=== PATIENT | female | born 1985 | race Caucasian/White ===

== ENCOUNTER 2021-07-24 14:53 | Outpatient (REF) | payer OTHER, SELFPAY ==
[2021-07-24 17:04] LABS: Abs Immature Grans 0.01 10^3/uL (0.0-0.06); Absolute Basophil Count 0.02 10^3/uL (0.0-0.2); Absolute Eosinophil Count 0.07 10^3/uL (0.0-0.7); Absolute Lymphocyte Count 1.62 10^3/uL (1.2-3.4); Absolute Monocyte Count 0.66 10^3/uL (0.1-0.8); Absolute Neutrophil Count 4.18 10^3/uL (1.2-6.7); Basophils % 0.3; Eosinophils % 1.1; HCT 42.6 % (36.0-46.0); HGB 14.5 g/dL (11.2-15.7); Immature Grans % 0.2; Lymphocytes % 24.7; MCH 31.2 pg (27.0-33.0); MCV 91.6 fL (80-95); MPV 9.3 fL (8.0-11.0); Monocytes % 10.1; Neutrophils % 63.6; Nucleated RBC 0 %; Platelet Count 225 10^3/uL (130-400); RBC 4.65 10^6/uL (3.93-5.22); RDW 12.5 % (11.7-14.6); RDW-SD 41.6 fL; WBC 6.56 10^3/uL (4.4-10.8)
[2021-07-24 17:19] LABS: ALT 663 U/L (14-59); AST 213 U/L (15-37); Alkaline Phosphatase 227 U/L (46-116); Anion Gap 9.7 mmol/L (3-11); BUN 10 mg/dL (7-18); Bilirubin, Total 2.3 mg/dL (0.2-1.0); CO2 26.3 mmol/L (21.0-32.0); CREATININE 0.7 mg/dL (0.55-1.02); Calcium 9.2 mg/dL (8.5-10.1); Chloride 106 mmol/L (98-107); Glucose 95 mg/dL (74-106); Potassium 4.3 mmol/L (3.5-5.1); Sodium 142 mmol/L (136-145); Total Protein 6.8 g/dL (6.4-8.2)
[2021-07-24 17:31] LABS: Lipase 9419 U/L (73-393)
== END 2021-07-24 14:54 | disposition home or self-care (01) ==
LOC: LBN 14:53
PROVIDERS: PCP Internal Medicine; Referring Provider Physician Assistant Medical; Visit Provider Physician Assistant Medical
DX: R10.9 Unspecified abdominal pain (principal)
CPT/HCPCS: 80053; 83690; 85025

== ENCOUNTER 2024-03-03 09:41 | Outpatient (CLI) | payer SELFPAY ==
[2024-03-03 08:32] LABS: Abs Immature Grans 0.01 10^3/uL (0.0-0.06); Absolute Basophil Count 0.01 10^3/uL (0.0-0.2); Absolute Eosinophil Count 0.06 10^3/uL (0.0-0.7); Absolute Lymphocyte Count 1.69 10^3/uL (1.2-3.4); Absolute Monocyte Count 0.28 10^3/uL (0.1-0.8); Absolute Neutrophil Count 3.02 10^3/uL (1.2-6.7); Basophils % 0.2; Eosinophils % 1.2; HCT 42.4 % (36.0-46.0); Immature Grans % 0.2; Lymphocytes % 33.3; MCH 32.6 pg (27.0-33.0); MCHC 35.4 % (32.0-36.0); MCV 92 fL (80-95); MPV 8.2 fL (8.0-11.0); Monocytes % 5.5; Neutrophils % 59.6; Platelet Count 273 10^3/uL (130-400); RDW 11.7 % (11.7-14.6); RDW-SD 39.8 fL; WBC 5.07 10^3/uL (4.4-10.8)
[2024-03-03 09:00] LABS: ALT 25 U/L (14-59); AST 16 U/L (15-37); Alkaline Phosphatase 49 U/L (46-116); BUN 13 mg/dL (7-18); Bilirubin, Total 0.8 mg/dL (0.2-1.0); CREATININE 0.9 mg/dL (0.55-1.02); Calculated LDL 72 mg/dL (<100); Chloride 104 mmol/L (98-107); Cholesterol 174 mg/dL (<200); Glucose 96 mg/dL (74-106); HDL Cholesterol 97 mg/dL (40-60); Potassium 3.8 mmol/L (3.5-5.1); Sodium 142 mmol/L (136-145); TSH (W/Ref FT4) 1.14 uIU/mL (0.36-3.74); Total Protein 7.2 g/dL (6.4-8.2); Triglyceride 29 mg/dL (<150)
== END 2024-03-03 09:42 | disposition home or self-care (01) ==
LOC: LBO 09:41
PROVIDERS: PCP Nurse Practitioner; Visit Provider Nurse Practitioner
DX: Z13.220 Encounter for screening for lipoid disorders (principal); F41.9 Anxiety disorder, unspecified
CPT/HCPCS: 36415; 80053; 80061; 84443; 85025

== ENCOUNTER 2024-10-20 15:30 | Outpatient (REF) | payer OTHER, SELFPAY ==
--- NOTE | 2024-10-20 15:20 | PAPFT_PTH ---
PATIENT: Codi Diaz LOC: [facility] U#:[id number] AGE/SX: 39/F ROOM: RE10/20/[address]: Jocelyne Beavers DO : 1985 BED: DIS: 10/20/2024 SPEC #: [id number] RECD: 10/20/24 17:14 STATUS: ABIODUN REQ #: [id number] MARIBEL: 10/20/24 15:[address]: Jocelyne Beavers DEPT: [facility] Cytology RECD BY: Krystal Gilbert ENTERED: 10/20/24 17:14 SP TYPE: PAPFT ARIEL DR: Valerie Palomino APRN Tissues: 1 - CX/ENDOCX FOR PAP SMEARS Procedures: PAP THIN PREP/[facility] Screening HPV DNA PROBE Comments: [id number] (HPV 16 & 18/45)
== END 2024-10-20 15:31 | disposition home or self-care (01) ==
LOC: LBN 15:30
PROVIDERS: PCP Nurse Practitioner; Visit Provider Obstetrics & Gynecology
DX: Z12.39 Encounter for other screening for malignant neoplasm of breast (principal); Z01.419 Encounter for gynecological examination (general) (routine) without abnormal findings; Z30.431 Encounter for routine checking of intrauterine contraceptive device
CPT/HCPCS: 88142; 87624

== ENCOUNTER 2024-11-04 00:14 | Outpatient (CLI) | payer OTHER, SELFPAY ==
--- NOTE | 2024-11-04 07:30 | DI.MAMMO_ITS ---
Exam(s) MAMMO SCREENING EXAM: MAMMO SCREENING CLINICAL HISTORY: screening TECHNIQUE: Bilateral full field digital CC and MLO mammographic images were obtained with 3D tomosyn thesis and utilizing computer aided detection (CAD). COMPARISON: This is a baseline examination. FINDINGS: Masses/Architectural Distortion: There appears to be a ovoid nodular density in the outer right breas t on the CC view. It appears to lie in upper half of the right breast on the MLO view. There are no areas of architectural distortion. Microcalcifications: No suspicious pleomorphic-type are seen. Skin Thickening/Nipple Retraction: None. IMPRESSION: 1. Ovoid nodule in the upper outer quadrant of the right breast. 2. A spot compression views requested for further evaluation. Targeted right breast ultrasound may b e indicated at that time. BI-RADS Category 0 - Incomplete: Need additional imaging evaluation Breast Density - Category C - Heterogeneously dense Breast density category C or D implies that the patient has dense breast tissue. Dense breast tissue is very common and is not abnormal but dense breast tissue can make it harder to find cancer on a ma mmogram. Also, dense breast tissue may increase their breast cancer risk. This information about the result of the mammogram report was provided to the patient to raise their awareness. Use this report when you speak with the patient about their risks for breast cancer, which includes their family hist ory. At that time, you may recommend for more screening tests (Ultrasound or MRI) as they might be us eful based on their risk. A negative radiographic report should not delay biopsy if a dominant or clinically suspicious mass is present. Up to ten percent of cancers are not identified on mammography. A negative report may reinforce clinical impression. Adenosis and dense breasts may obscure an underlying neoplasm. False positive reports average 6 to 10%. Patient will receive a letter notifying them of these results.
== END 2024-11-04 00:34 ==
PROVIDERS: PCP Nurse Practitioner; Visit Provider Obstetrics & Gynecology
DX: Z12.31 Encounter for screening mammogram for malignant neoplasm of breast (principal); R92.333 Mammographic heterogeneous density, bilateral breasts
CPT/HCPCS: 77063; 77067

== ENCOUNTER 2024-11-11 00:36 | Outpatient (CLI) | payer SELFPAY ==
--- NOTE | 2024-11-11 | DI.US_ITS ---
Exam(s) MG MAMMO SCREEN CALL BACK UNI US BREAST RT LIMITED EXAM: MG MAMMO SCREEN CALL BACK UNI CLINICAL HISTORY: F/U ABNL MAMMO, OVOID NODULE UOQ RT BREAST. TECHNIQUE: Craniocaudal and mediolateral oblique spot compression digital Mammography views of the r ightbreast with Tomosynthesis and right breast ultrasound. COMPARISON: MG MG MAMMO SCREENING from 11/04/2024 US US BREAST RT LIMITED from 11/11/2024 FINDINGS: Mammography/Tomosynthesis: Masses: No suspicious mass. The questioned area of nodularity in the upper outer quadrant adjacent t o the pectoral muscle, has the appearance of a lymph node. Architectural Distortion: None seen. Microcalcifictions: No suspicious pleomorphic-type are seen. Skin Thickening/Nipple Retraction: None. Right breast US: Echotexture: Normal appearance of the glandular tissue. Shadowing: No suspicious foci. Cyst: 5 x 3 millimeter cyst in the retroareolar region. Solid lesions: No suspicious masses seen. Ductal dilation: None. IMPRESSION: 1. No evidence of malignancy is noted. 2. Six-month follow-up right mammogram recommended. 3. The findings were discussed with the patient on the date of the examination. BI-RADS Category 3 - 6 month - Probably Benign Finding: Recommend follow-up mammography in 6 months Breast Density - Category C - Heterogeneously dense A mammogram that demonstrates density of C or D indicates the patient's breast tissue is dense. Dense breast tissue is very common and is not abnormal, but dense breast tissue can make it harder to find cancer on a mammogram. Also, dense breast tissue may increase their breast cancer risk. This informa tion about the result of the mammogram report was provided to the patient to raise their awareness. U se this report when you speak with the patient about their risks for breast cancer, which includes th eir family history. At that time, you may recommend for more screening tests (Ultrasound or MRI) as t hey might be useful based on their risk. A negative radiographic report should not delay biopsy if a dominant or clinically suspicious mass is present. Up to ten percent of cancers are not identified on mammography. A negative report may reinforce clinical impression. Adenosis and dense breasts may obscure an underlying neoplasm. False positive reports average 6 to 10%. Patient will receive a letter notifying them of these results.
== END 2024-11-11 00:56 ==
PROVIDERS: PCP Nurse Practitioner; Visit Provider Obstetrics & Gynecology
DX: Z12.31 Encounter for screening mammogram for malignant neoplasm of breast (principal); R92.333 Mammographic heterogeneous density, bilateral breasts; D24.1 Benign neoplasm of right breast
CPT/HCPCS: 76642; 77063; 77067

== ENCOUNTER 2025-05-05 00:19 | Outpatient (CLI) | payer BC, SELFPAY ==
--- NOTE | 2025-05-05 07:30 | DI.MAMMO_ITS ---
Exam(s) MG MAMMO DIAGNOSTIC UNI EXAM: MG MAMMO DIAGNOSTIC UNI CLINICAL HISTORY: 6-month f/u,abnl mammo rt breast,r92.8,lymph node and cyst, rt TECHNIQUE: Cc and MLO mammogram images were performed according to the usual protocol including computer analysis with CAD system, tomosynthesis and C- view imaging. COMPARISON: MG MG MAMMO SCREENING from 11/04/2024 US US BREAST RT LIMITED from 11/11/2024 MG MG MAMMO SCREEN CALL BACK UNI from 11/11/2024 FINDINGS: The breast is composed of scattered fibroglandular densities, Breast Density category B. No suspicious masses or suspicious microcalcifications are seen. No skin thickening or abnormal axillary lymph nodes are seen. Arm the previously noted lymph node adjacent to the pectoral muscle appears unchanged. IMPRESSION: BI-RADS Category 3 - Annual - Resume Annual Screening Breast Density - Category C - The breast are heterogeneously dense, which may obscure small masses. Breast density Category C or D implies that the patient has dense breast tissue. Dense breast tissue can make it harder to find cancer on a mammogram. Dense breast tissue is also associated with an increased risk of breast cancer. This information about the result of the mammogram report was provided to the patient to raise their awareness. Use this report when you speak with the patient about their risks for breast cancer, which includes their family history. At that time, you may recommend additional screening tests (Ultrasound or MRI) as these tests may add significant information. A negative radiographic report should not delay biopsy if a dominant or clinically suspicious mass is present. Up to ten percent of cancers are not identified on mammography. A negative report may reinforce clinical impression. Adenosis and dense breasts may obscure an underlying neoplasm. False positive reports average 6 to 10%. Patient will receive a letter notifying them of these results.
== END 2025-05-05 00:39 ==
LOC: DI 00:19
PROVIDERS: PCP Nurse Practitioner; Visit Provider Obstetrics & Gynecology
DX: R92.8 Other abnormal and inconclusive findings on diagnostic imaging of breast (principal); Z12.31 Encounter for screening mammogram for malignant neoplasm of breast
CPT/HCPCS: 77061; 77065; G0279

== ENCOUNTER → 2025-11-07 00:48 | Outpatient (CLI) | payer BC, SELFPAY ==
--- NOTE | 2025-11-07 07:45 | DI.MAMMO_ITS ---
Exam(s) MAMMO SCREENING EXAM: MAMMO SCREENING CLINICAL HISTORY: screening,Z12.39. TECHNIQUE: Bilateral full field digital CC and MLO mammographic images were obtained with 3D tomosynthesis and utilizing computer aided detection (CAD). COMPARISON: Prior mammograms were reviewed. FINDINGS: There has been no significant change in the appearance and distribution of the fibroglandular tissue which is again noted be heterogeneously dense.. There are no new spiculated masses nor malignant appearing microcalcification groups. There is no significant architectural distortion nor skin thickening-retraction. IMPRESSION: No radiographic evidence of malignancy. BI-RADS Category 1 - Negative Breast Density - Category C - The breast are heterogeneously dense, which may obscure small masses. Breast density Category C or D implies that the patient has dense breast tissue. Dense breast tissue can make it harder to find cancer on a mammogram. Dense breast tissue is also associated with an increased risk of breast cancer. This information about the result of the mammogram report was provided to the patient to raise their awareness. Use this report when you speak with the patient about their risks for breast cancer, which includes their family history. At that time, you may recommend additional screening tests (Ultrasound or MRI) as these tests may add significant information. A negative radiographic report should not delay biopsy if a dominant or clinically suspicious mass is present. Up to ten percent of cancers are not identified on mammography. A negative report may reinforce clinical impression. Adenosis and dense breasts may obscure an underlying neoplasm. False positive reports average 6 to 10%. Patient will receive a letter notifying them of these results.
== END ==
LOC: DI 00:48
PROVIDERS: PCP Nurse Practitioner; Visit Provider Obstetrics & Gynecology
DX: Z12.31 Encounter for screening mammogram for malignant neoplasm of breast (principal); R92.323 Mammographic fibroglandular density, bilateral breasts; R92.333 Mammographic heterogeneous density, bilateral breasts
CPT/HCPCS: 77063; 77067